=== PATIENT | female | born 1970 | race Caucasian/White ===

== ENCOUNTER 2019-12-30 10:36 | Emergency (ER) | payer MEDICAID, SELFPAY ==
[~2019-12-30] VITALS: Ht 152.4 cm; Wt 74.4 kg
[~2019-12-30 10:36] MED LIST: ACET-8386 PO; IBUP-2213 PO
[2019-12-30 10:40] VITALS: BP 124/58
[2019-12-30 12:32] VITALS: BP 124/73
== END 2019-12-30 12:32 | disposition home or self-care (01) ==
LOC: MED 10:36 → EEVIPCON 10:36 → MED 12:32
DX: B34.9 Viral infection, unspecified (principal); Z20.828 Contact with and (suspected) exposure to other viral communicable diseases; Z79.899 Other long term (current) drug therapy
CPT/HCPCS: 36415; 71045; 87804; 99284; U0002